=== PATIENT | female | born 1990 | race African-American/Black ===

== ENCOUNTER 2022-06-02 19:26 | Emergency (ER) | payer OTHER ==
[2022-06-02 19:36] VITALS: BP 109/67
[2022-06-02 19:45] VITALS: BP 99/60
[2022-06-02] MEDS ORDERED: HYDROXYZINE HCL10 MG PO (19:47)
[2022-06-02 20:19] LABS: BASO% 0.7 % (0-3); EOS% 1.2 % (0-8); HEMATOCRIT 25.7 % (37.0-47.0); HEMOGLOBIN 7.1 g/dl (12.0-16.0); IMMATURE GRANULOCYTES 0.3 % (0.0-5.0); MEAN CELL VOLUME 71.2 fL CALC (80.0-100.0); MEAN CORPUSCULAR HGB 19.7 pG CALC (26.0-32.0); MEAN CORPUSCULAR HGB CONC 27.6 g/dL CAL (32.0-36.0); MONO% 8.1 % (2-13); NEUT# 4.72 thou/uL (2.00-7.15); NEUT% 62.7 % (42-76); RED BLOOD COUNT 3.61 mill/uL (4.20-5.60); RED CELL DISTRI WIDTH 24.7 % (11.5-15.5)
[2022-06-02 20:21] LABS: URINE BILIRUBIN - DIPSTICK NEGATIVE (NEGATIVE); URINE BLOOD DIPSTICK NEGATIVE (NEGATIVE); URINE COLOR YELLOW; URINE GLUCOSE - DIPSTICK NEGATIVE (NEGATIVE); URINE KETONE NEGATIVE (NEGATIVE); URINE LEUK ESTERASE NEGATIVE (NEGATIVE); URINE PROTEIN - DIPSTICK NEGATIVE (NEG-TRACE); URINE SPECIFIC GRAVITY 1.015; URINE UROBILINOGEN - DIPSTICK 0.2 E.U./dL (0.2)
[2022-06-02 20:23] LABS: URINE NITRITE - DIPSTICK NEGATIVE (Negative)
[2022-06-02 20:28] LABS: ALBUMIN 4.2 g/dL (3.2-5.0); ALKALINE PHOSPHATASE 45 u/l (38-126); ANION GAP 9 (6-22 (CALC)); BUN 10 mg/dL (7-17); BUN/CREATININE RATIO 11 (12-20 (CALC)); CARBON DIOXIDE 29 mmol/l (22-30); CHLORIDE 105 mmol/l (95-108); CREATININE 0.9 mg/dL (0.5-1.0); GFR FOR AFR.AMER. > 60 ML/MIN (>=60 (CALC)); GFR OTHER RACES > 60 ML/MIN (>=60 (CALC)); POTASSIUM 3.8 mmol/l (3.5-5.1); SGOT/AST 26 u/l (14-36); SODIUM 139 mmol/l (137-146)
[2022-06-02 20:30] LABS: URINE BACTERIA FEW hpf; URINE SQUAMOUS EPITHELIAL CELL MANY EPI/hpf (0-FEW)
[2022-06-02 20:31] LABS: URINE AMORPH SEDIMENT MANY hpf (NONE-FEW); URINE MUCUS FEW hpf (NONE-FEW)
[2022-06-02] MEDS ORDERED: CHROMAGEN1 CAP PO (21:09)
[2022-06-02 21:17] VITALS: BP 99/60
== END 2022-06-02 21:26 | disposition home or self-care (01) | DRG 605 ==
LOC: ED 19:26
PROVIDERS: Family Medicine
PROC: 0HQ1XZZ Repair Face Skin, External Approach (ICD-10-PCS; principal; 2022-06-02)
PROC: 30233N1 Transfusion of Nonautologous Red Blood Cells into Peripheral Vein, Percutaneous Approach (ICD-10-PCS; 2022-06-02)
DX: S01.81XA Laceration without foreign body of other part of head, initial encounter (principal); W01.0XXA Fall on same level from slipping, tripping and stumbling without subsequent striking against object, initial encounter; D50.0 Iron deficiency anemia secondary to blood loss (chronic); S09.90XA Unspecified injury of head, initial encounter